=== PATIENT | male | born 1985 | race Caucasian/White ===

== ENCOUNTER 2021-07-05 11:40 | Emergency (ER) | payer OTHER ==
[2021-07-05] MEDS ORDERED: RX INFO: IV CONTRAST WAS GIVEN 1 EACH MISC MISCELLANE PRN (14:32)
--- NOTE | 2021-07-05 15:03 | ED ---
General Adult HPI - General Source: patient, RN notes reviewed, old records reviewed Mode of arrival: ambulatory Limitations: no limitations <Morales Solomon - Last Filed: 07/05/21 14:58> <Esteban James - Last Filed: 07/05/21 16:02> - General Chief complaint: Upper Respiratory Infection Stated complaint: cough Time Seen by Provider: 07/05/21 14:14 - History of Present Illness Initial comments: Patient is a 35-year-old male with past medical history that is unremarkable except for recent COVID-19 infection. Presents emergency Department with multiple day history of upper respiratory symptoms. Patient was given negative at the clinic. They're obtain a chest x-ray which was concerning for pneumonia versus pleural effusion. Some here for further evaluation. Denies any exertional dyspnea, chest pain, history of blood clots, lower extremity edema, orthopnea, PND. Has no other acute complaints at this time other than a mild productive cough. Was concerned he may have Covid again. Presents emergency department for further evaluation after being sent from an outside facility. (Morales Anderson) - Related Data Home Medications Medication Instructions Recorded Confirmed Phenyleph/Acetaminophn/Doxylam 1 cap PO Q4H PRN 07/05/21 07/05/21 [Vicks Dayquil-Nyquil Sinex Cap] Previous Rx's Medication Instructions Recorded Amoxicillin/Potassium Clav 1 tab PO BID 10 Days #20 tab 07/05/21 [Augmentin 875-125 Tablet] Azithromycin [Zithromax] 500 mg PO DAILY 5 Days #5 tab 07/05/21 Allergies Allergy/AdvReac Type Severity Reaction Status Date / Time No Known Allergies Allergy Verified 07/05/21 15:40 Review of Systems ROS Other: All systems not noted in ROS Statement are negative. <Morales Solomon - Last Filed: 07/05/21 14:58> ROS Other: All systems not noted in ROS Statement are negative. <Esteban James - Last Filed: 07/05/21 16:02> ROS Statement: Those systems with pertinent positive or pertinent negative responses have been documented in the HPI. Review of Systems: CONST: Denies fever EYES: Denies blurry vision ENT: Denies nasal congestion C/V: Denies Chest pain RESP: Endorses cough GI: Denies abdominal pain : Denies dysuria SKIN: Denies rash. MSK: Denies joint pain. NEURO: Denies headache (Morales Solomon) Past Medical History Past Medical History: No Reported History History of Any Multi-Drug Resistant Organisms: None Reported Past Surgical History: No Surgical Hx Reported Past Psychological History: No Psychological Hx Reported Smoking Status: Never smoker Past Alcohol Use History: Occasional Past Drug Use History: None Reported <Morales Solomon - Last Filed: 07/05/21 14:58> General Exam Limitations: no limitations <Morales Solomon - Last Filed: 07/05/21 14:58> - General Exam Comments Initial Comments: General: Appears in no acute distress. HEAD: Normal with no signs of head trauma. EYES: PERRLA, EOMI, conjunctiva normal, no discharge. ENT: Hearing grossly intact, normal oropharynx. RESPIRATORY: Relatively clear breath sounds bilaterally with some rhonchi, reduced breath sounds in the right lower lung field. Not hypoxic. No increased work of breathing. C/V: Regular rate and rhythm. S1 and S2 auscultated, no edema, peripheral pulses 2+ and intact throughout ABD: Abd is soft, nontender, nondistended EXT: Normal range of motion, no obvious deformity SKIN: No rashes or lesions observed on exposed skin. NEURO: Alert and oriented 4. No focal deficits. (Morales Solomon) Course Vital Signs 07/05/21 12:28 Temperature 99.1 F Pulse Rate 103 H Respiratory 20 Rate Blood Pressure 147/103 O2 Sat by Pulse 97 Oximetry Medical Decision Making <Morales Solomon - Last Filed: 07/05/21 14:58> <Esteban James - Last Filed: 07/05/21 16:02> - Medical Decision Making He saw patient's presentation and physical exam, I did review the patient's x- ray from the outside facility and I'm concerned for either pneumonia with possible pleural effusion or a pleural effusion. To better characterize the findings, I would like to obtain a CT chest with contrast. Patient was in agreement this plan. Patient otherwise appears within normal limits is not on any form of respiratory distress. Laboratory studies will be held off at this time. Covid swab here negative. At this time is limited. Patient was signed out to [facility] physician under Dr. James. Disposition is pending CT imaging. Patient sent in stable condition. (Morales Solomon) CT performed, showing a right-sided effusion, possible adjacent pneumonia. I did discuss imaging and the patient's presentation with the yard rigger on- call Dr. Membreno. At this time felt that this patient will require an outpatient thoracentesis. This is not emergent at this time. The patient is given strict return parameters and he is started on antibiotics. (Esteban James) - Lab Data Lab Results 07/05/21 Range/Units 12:33 Coronavirus (PCR) Not Detected (Not Detectd) Disposition <Morales Solomon - Last Filed: 07/05/21 14:58> Is patient prescribed a controlled substance at d/c from ED?: No Time of Disposition: 16:01 <Esteban James - Last Filed: 07/05/21 16:02> Clinical Impression: Pleural effusion Disposition: HOME SELF-CARE Condition: Fair Instructions (If sedation given, give patient instructions): Pleural Effusion (ED) Prescriptions: Amoxicillin/Potassium Clav [Augmentin 875-125 Tablet] 1 tab PO BID 10 Days #20 tab Azithromycin [Zithromax] 500 mg PO DAILY 5 Days #5 tab Referrals: None,Stated [Primary Care Provider] - 1-2 days Paolo Membreno MD [STAFF PHYSICIAN] - 1-2 days
--- NOTE | 2021-07-05 15:20 | CT ---
EXAMINATION TYPE: CT chest w con DATE OF EXAM: 07/05/2021 COMPARISON: Outside chest x-ray from today HISTORY: 35-year-old male with shortness of breath, pneumonia vs. pleural effusion. TECHNIQUE: Contiguous axial scanning of the chest after the administration of 100 mL of Isovue 300. Coronal/sagittal reconstructions performed. CT DLP: 524.5mGycm. Automatic exposure control utilized for a dose reduction. FINDINGS: The heart is normal size with trace anterior basilar pericardial fluid. Aorta normal caliber with conventional vessel branching anatomy. No thoracic lymphadenopathy by CT size criteria. There is a moderate right pleural effusion. There is opacity of most of the right lower lobe with ass ociated volume loss suggesting atelectasis. Some basilar segments remain aerated. At the midlung level, there is perihilar focal opacity, axial image 34 and 35. Pneumonia not excluded . Left lung and pleural space are clear. In the upper abdomen, spleen is enlarged at 14.8 cm. Bones: No osseous destructive process. IMPRESSION: 1. Moderate right pleural effusion with adjacent atelectasis of most of the right lower lobe. Some of the basilar segments remain aerated. 2. Focal right-sided perihilar opacity (axial image 34 and 35). Correlate for possible pneumonia. If the etiology of the pleural effusion remains unclear, consider diagnostic thoracentesis. 3. Splenomegaly at 14.8 cm.
[2021-07-05 16:35] VITALS: BP 143/93; PULSE 101; RESP 18; TEMP 98.8
== END 2021-07-05 16:30 | disposition home or self-care (01) ==
LOC: EC 11:40
DX: J90 Pleural effusion, not elsewhere classified (principal); Z20.822 Contact with and (suspected) exposure to COVID-19
CPT/HCPCS: 87635; 71260; 99284; Q9967